=== PATIENT | male | born 1995 | race Two or more races ===

== ENCOUNTER 2017-04-01 12:39 | Emergency (ER) | payer OTHER ==
--- NOTE | ~2017-04-01 | ER ---
PATIENT'S NAME: BHARTI, [facility]. [facility] AGE: 21 Y [address] ROOM: [place] [address] LOCATION: [facility] ADMIT DATE: 04/01/2017 ER/Outpatient Report DISCHARGE DATE: 04/01/2017 FAMILY PHYSICIAN: PHYSICIAN, NO ATTENDING PHYSICIAN: Barrett Long Time of Arrival: 1239 hours. Time of Evaluation: 1255 hours. CHIEF COMPLAINT: Right shoulder dislocation. HISTORY OF PRESENT ILLNESS: This is a 21-year-old male, who presents to the ER with a right shoulder dislocation that happened approximately 30 minutes prior to arrival. The patient states he was lifting weights. He states while he was lifting weights, he felt his right shoulder pop out of place. He states it has happened to him before. The last time his shoulder dislocated was a year and a half ago. He states he has seen Dr. Brown in the past for orthopedic care. He denies any other injury at this time. ALLERGIES: NO KNOWN ALLERGIES. MEDICATIONS: None. PAST MEDICAL HISTORY: Previous right shoulder dislocation x4. PAST SURGICAL HISTORY: None. SOCIAL HISTORY: Drinks alcohol. Denies any smoking use of cigarettes but does smoke marijuana daily. REVIEW OF SYSTEMS: CONSTITUTIONALLY: Denies any change in weight or fatigue. MUSCULOSKELETAL: He is complaining of right shoulder pain. HEMATOLOGIC: No easy bruising or bleeding. SKIN: No lesions or rashes. PHYSICAL EXAMINATION: VITAL SIGNS: Blood pressure is 153/81, pulse 108, respirations 20, [facility] 21 [facility] [address] ROOM: [place] [address] LOCATION: [facility] ADMIT DATE: 04/01/2017 ER/Outpatient Report DISCHARGE DATE: 04/01/2017 FAMILY PHYSICIAN: PHYSICIAN, NO ATTENDING PHYSICIAN: Barrett Long temperature 97.8 degrees tympanically, saturations 99% on room air. [place] Coma Score is 15. GENERAL: Alert, calm, well-developed, 21-year-old, in moderate distress. HEENT: Head: Normocephalic. He does display moist mucous membranes. LUNGS: Clear to auscultation bilaterally. HEART: Tachycardic, normal rhythm. EXTREMITIES: No clubbing. He does have his right arm pinned to his anterior chest wall. He is complaining of pain with palpation over the shoulder, and it does feel like the humeral head is anteriorly dislocated. He has good radial pulse. He has good sensation to all of his fingers, and he has full range of motion in all other limbs. NEUROLOGIC: Cranial nerves 2 through 12 grossly intact. Gait is steady without assistance. LABORATORY DATA: None were done. X-RAYS: X-rays of the right shoulder show a right shoulder dislocation. IMPRESSION: Right shoulder dislocation. ASSESSMENT AND PLAN: I did discuss the patient's care with Dr. Long. Dr. Long also evaluated the patient. We did start an IV and got a hold of nurse exhibit artist, and she will be coming to sedate the patient. Once the patient was sedated, we successfully relocated his shoulder without difficulty. We did get post reduction films, which show reduction of the shoulder. We did place the patient in a shoulder immobilizer. He needs to ice the shoulder, may take Tylenol or ibuprofen as needed for pain control, and he needs a followup with [facility] for followup care within the week. The patient and the patient's friend understand and agree with care. AMILCAR SCHULER PA-C FOR MD OCTAVIO SENIORJ/genetl /[id number] I have personally evaluated this patient. I was immediately present for evaluation and immediately directed the relocation. I have reviewed the assessment and plan as documented above and agree. Barrett Long MD d: 04/02/17 0140 t: 04/11/17 0723, OUTPATIENT REPORT
== END 2017-04-01 14:40 | disposition disaster alternative care site (69) ==
LOC: GACC 12:39
PROC: 0RSJXZZ Reposition Right Shoulder Joint, External Approach (ICD-10-PCS; principal; 2017-04-01)
DX: S43.014A Anterior dislocation of right humerus, initial encounter (principal); X50.9XXA Other and unspecified overexertion or strenuous movements or postures, initial encounter
CPT/HCPCS: J2704; J7030